=== PATIENT | female | born 1985 | race Hispanic/Latino ===

== ENCOUNTER 2018-03-29 19:20 | Inpatient (IN) | payer BC ==
[2018-03-29] MEDS ORDERED: ONDANSETRON 4 MG/2 ML VIAL IV PRN (20:32)
[2018-03-29] MEDS: CIPROFLOXACIN 400mg IV 400 MG/200 ML BAG IV SCH (21:00)
[2018-03-29] MEDS: NA CHLORIDE 0.9% 1,000 ML IV SCH (21:00)
--- NOTE | 2018-03-29 21:28 | P.HP ---
Certification for Inpatient Patient admitted to: Inpatient With expected LOS: >2 Midnights Practitioner: I am a practitioner with admitting privileges, knowledge of patient current condition, hospital course, and medical plan of care. Services: Services provided to patient in accordance with Admission requirements found in Title 42 Section 412.3 of the Code of Federal Regulations Patient History Date of Service: 03/29/18 Reason for admission: Colitis History of Present Illness: Ms Lima is a 32-year-old woman who start with abdominal pain associated with diarrhea last night after dinner. She described the pain as crampy, diffuse, 10 /10 of intensity, associated with nausea vomiting. She denied fever but has had chills. She went to [place] [facility] today, she had a CT scan abdomen and pelvis which was remarkable for colitis. Lab work the shows leukocytosis 11.3 K, UA unremarkable. The patient then was transferred to our facility for admission, in order to start IV antibiotic treatment, and have a GI specialist evaluation. Allergies No Known Allergies Allergy (Verified 03/29/18 21:20) Home medications list reviewed: Yes - Past Medical/Surgical History -: Ovarian cyst - Family History Father -: GI disease, Other (see notes) (Ulcerative colitis) - Social History Smoking Status: Never smoker Alcohol use: No CD- Drugs: No Place of Residence: Home Review of Systems 10-point ROS is otherwise unremarkable Physical Examination - Vital Signs Temperature: 97.9 F Blood Pressure: 131/79 Pulse: 66 Respirations: 20 Pulse Ox (%): 100 - Physical Exam General: Alert, In no apparent distress HEENT: Atraumatic, PERRLA, Mucous membr. moist/pink, EOMI, Sclerae nonicteric Neck: Supple, 2+ carotid pulse no bruit, No LAD, Without JVD or thyroid abnormality Respiratory: Clear to auscultation bilaterally, Normal air movement Cardiovascular: Regular rate/rhythm, Normal S1 S2 Gastrointestinal: Normal bowel sounds, No rebound, No guarding, Tenderness ( Tender to palpation diffuse) Musculoskeletal: No tenderness Integumentary: No rashes Neurological: Normal speech, Normal strength at 5/5 x4 extr, Normal tone, Normal affect Lymphatics: No axilla or inguinal lymphadenopathy Assessment and Plan - Problems (Diagnosis) (1) Colitis Current Visit: Yes Status: Acute - Plan The patient will be admitted to the hospital due to colitis. Her father has history of ulcerative colitis, which makes it highly suspicion within the differential diagnosis. Will start empiric treatment with Cipro and Flagyl. Will order symptomatic medication for pain, nausea and vomiting. Consult GI specialist for evaluation recommendation. - Advance Directives Does patient have a Living Will: No Does patient have a Durable POA for Healthcare: No - Code Status/Comfort Care Code Status Assessed: Yes Code Status: Full Code
[2018-03-29] MEDS: KETOROLAC 30 MG/ML INJ IV PRN (23:12)
[2018-03-30] MEDS: METRONIDAZOLE 500mg IVPB 500 MG/100 ML BAG IV SCH ×3 (00:32→17:38)
[2018-03-30] MEDS: KETOROLAC 30 MG/ML INJ IV PRN ×3 (05:23→20:57)
[2018-03-30] MEDS: NA CHLORIDE 0.9% 1,000 ML IV SCH ×2 (05:23→17:35)
[2018-03-30 06:11] LABS: Absolute Lymphocytes (CBC) 2.2 K/uL (0.7-4.9); Absolute Monocytes 0.8 K/uL (0.1-1.3); Basophils % 0.5 % (0-1.3); Eosinophils % 2.3 % (0-4.4); Lymphocytes % 30.3 % (15.3-44.8); MCH 19.9 pg (27.0-35.0); MCV 64.2 fL (80-100); MPV 9.5 fL (7.6-11.3); Monocytes % 11.3 % (3.3-12.3)
[2018-03-30 06:23] LABS: BUN Blood Urea Nitrogen 4 mg/dL (7-18); Bicarbonate 24 mmol/L (21-32); Glucose Level 94 mg/dL (74-106); Potassium 3.7 mmol/L (3.5-5.1); Sodium Level 142 mmol/L (136-145)
[2018-03-30 07:36] LABS: Blood Morphology Comment NOT SEEN (NOT SEEN); Hypochromasia 2+; Platelet Estimate ADEQ; Urine White Blood Cell Casts OK
[2018-03-30] MEDS ORDERED: INFLUENZA VACCINE (for 3y+) 0.5 ML DOSE IMVAC ONE (08:00)
[2018-03-30] MEDS ORDERED: KCL 20 MEQ/100 mL IVPB 20 MEQ/100 ML BAG IV SCH ×2 (09:00)
[2018-03-30] MEDS: CIPROFLOXACIN 400mg IV 400 MG/200 ML BAG IV SCH ×2 (09:17→20:04)
--- NOTE | 2018-03-30 10:15 | P.PN ---
Subjective Date of Service: 03/30/18 Primary Care Provider: None Chief Complaint: Colitis Subjective: Other (Pain to the abdomen improved. Patient reports history of rectal bleeding often on for several months. She has not followed up with GI to address this. Patient reports family history of colon polyps. No history of ulcerative colitis as stated on H&P.) Physical Examination - Vital Signs Temperature: 97.9 F Blood Pressure: 118/74 Pulse: 70 Respirations: 18 Pulse Ox (%): 99 - Physical Exam General: Alert, In no apparent distress, Oriented x3, Cooperative HEENT: Atraumatic Neck: Supple Respiratory: Clear to auscultation bilaterally, Normal air movement Cardiovascular: Normal pulses, Regular rate/rhythm Gastrointestinal: Normal bowel sounds, Soft and benign, Non-distended, No masses , No rebound, No guarding, Tenderness (Less pain to the abdomen noted.) Musculoskeletal: No erythema, No tenderness, No warmth Integumentary: No tenderness/swelling, No erythema, No warmth, No cyanosis Neurological: Normal speech, Normal strength at 5/5 x4 extr, Normal tone, Normal affect - Studies Laboratory Data (last 24 hrs) 03/30/18 05:44: Sodium 142, Potassium 3.7, BUN 4 L, Creatinine 0.60, Glucose 94 03/30/18 05:44: WBC 7.2, Hgb 7.8 L*, Hct 25.0 L, Plt Count 336 Medications List Reviewed: Yes Assessment & Plan Discharge Plan: Home Plan to discharge in: 48 Hours Physician Review Additional Text: Impression: Abdominal pain secondary to colitis History of rectal bleeding with family history of colon polyps Anemia likely secondary to colitis with history of rectal bleeding Plan: Abdominal pain secondary to colitis: Will continue IV antibiotic therapy and IV fluids. Will monitor this closely. Pain significantly improved. Will start clear liquid diet. Encourage ambulation. Will advance diet as tolerated. Anticipate discharge in the next 24-48 hr. GI consulted. Patient will need colonoscopy in 4-6 weeks to further evaluate. History of rectal bleeding with family history of colon polyps: Patient with anemia. Will monitor hemoglobin closely. Patient reports history of rectal bleeding that is not seen GI in the past. She reports family history of colon polyps with her mother. Patient will need colonoscopy in 4-6 weeks. Await recommendation from GI. Anemia likely secondary to colitis with history of rectal bleeding: Will monitor hemoglobin closely. Will check iron and B12 studies. Suspect iron deficiency anemia. Patient may require supplementation. Continue as above. Time Spent Managing Pts Care (In Minutes): 55
[2018-03-30 12:36] LABS: Hematocrit 23.9 % (36.0-45.0)
[2018-03-30 12:53] LABS: Ferritin 4.1 ng/mL (8-388)
[2018-03-30 18:15] LABS: Hematocrit 24.2 % (36.0-45.0)
[2018-03-31] MEDS: METRONIDAZOLE 500mg IVPB 500 MG/100 ML BAG IV SCH ×3 (00:39→18:21)
[2018-03-31] MEDS: NA CHLORIDE 0.9% 1,000 ML IV SCH (03:09)
[2018-03-31 06:51] LABS: BUN Blood Urea Nitrogen 4 mg/dL (7-18); Bicarbonate 25 mmol/L (21-32); Glucose Level 94 mg/dL (74-106); Potassium 4.5 mmol/L (3.5-5.1); Sodium Level 141 mmol/L (136-145)
[2018-03-31 09:02] LABS: Absolute Lymphocytes (CBC) 1.6 K/uL (0.7-4.9); Absolute Monocytes 0.6 K/uL (0.1-1.3); Absolute Neutrophil 3.5 K/uL (1.8-8.0); Basophils % 0.3 % (0-1.3); Eosinophils % 2.6 % (0-4.4); Hematocrit 26.4 % (36.0-45.0); Lymphocytes % 27.4 % (15.3-44.8); MCH 19.7 pg (27.0-35.0); MCV 64.3 fL (80-100); MPV 9.7 fL (7.6-11.3); Monocytes % 9.8 % (3.3-12.3)
[2018-03-31] MEDS: CIPROFLOXACIN 400mg IV 400 MG/200 ML BAG IV SCH ×2 (09:54→20:15)
[2018-03-31] MEDS: FERROUS SULFATE 325 MG TAB PO SCH ×2 (09:58→20:15)
--- NOTE | 2018-03-31 10:16 | P.PN ---
Subjective Date of Service: 03/31/18 Primary Care Provider: None Chief Complaint: Colitis Subjective: Doing well (No abdominal pain.) Physical Examination - Vital Signs Temperature: 98.2 F Blood Pressure: 118/86 Pulse: 67 Respirations: 18 Pulse Ox (%): 99 - Physical Exam General: Alert, In no apparent distress, Oriented x3, Cooperative HEENT: Atraumatic Neck: Supple Respiratory: Clear to auscultation bilaterally, Normal air movement Cardiovascular: Normal pulses, Regular rate/rhythm Gastrointestinal: Normal bowel sounds, Soft and benign, Non-distended, No tenderness, No masses, No rebound, No guarding Musculoskeletal: No erythema, No tenderness, No warmth Integumentary: No tenderness/swelling, No erythema, No warmth, No cyanosis Neurological: Normal speech, Normal strength at 5/5 x4 extr, Normal tone, Normal affect - Studies Laboratory Data (last 24 hrs) 03/31/18 07:53: WBC 5.8 D, Hgb 8.1 L, Hct 26.4 L, Plt Count 354 03/31/18 05:29: Sodium 141, Potassium 4.5, BUN 4 L, Creatinine 0.60, Glucose 94 03/30/18 17:58: Hgb 7.5 L*, Hct 24.2 L 03/30/18 12:00: Hgb 7.4 L*, Hct 23.9 L Microbiology Data (last 24 hrs): 03/30/18 18:40 Stool Occult Blood - Final Medications List Reviewed: Yes Assessment & Plan Discharge Plan: Home Plan to discharge in: 24 Hours Physician Review Additional Text: Impression: Abdominal pain secondary to colitis History of rectal bleeding with family history of colon polyps Anemia likely secondary to colitis with history of rectal bleeding Plan: Abdominal pain secondary to colitis: Will continue IV antibiotic therapy and IV fluids. IV fluids adjusted. Condition continues to improve. Will advance diet to soft. Encourage ambulation. Anticipate discharge tomorrow. Await C diff culture results. Guaiac study was positive. Hemoglobin stable. Patient will need colonoscopy in 4-6 weeks to further evaluate. History of rectal bleeding with family history of colon polyps: Patient with anemia. Hemoglobin stable at this time. No need for transfusion. She reports family history of colon polyps with her mother. Patient will need colonoscopy in 4-6 weeks. Anemia likely secondary to colitis with history of rectal bleeding: Will continue to monitor hemoglobin closely. Hemoglobin stable. No need for transfusion. Will continue with iron supplementation. Time Spent Managing Pts Care (In Minutes): 55
[2018-03-31] MEDS: NACHLORIDE 0.45% 1,000 ML IV SCH ×2 (11:00→20:15)
--- NOTE | 2018-03-31 14:07 | P.PN ---
Subjective Date of Service: 03/31/18 Primary Care Provider: None Chief Complaint: Colitis Subjective: Improving (No complaints today, tolerating GI soft diet.) Review of Systems Unremarkable Physical Examination - Vital Signs Temperature: 97.9 F Blood Pressure: 134/80 Pulse: 71 Respirations: 20 Pulse Ox (%): 100 - Physical Exam General: Alert, In no apparent distress, Oriented x3, Cooperative HEENT: Atraumatic, Normocephalic, PERRLA, EOMI Neck: Supple Respiratory: Normal air movement Cardiovascular: Normal pulses Gastrointestinal: Soft and benign, No tenderness, No rebound, No guarding Neurological: Normal speech, Normal strength at 5/5 x4 extr - Studies Laboratory Data (last 24 hrs) 03/31/18 07:53: WBC 5.8 D, Hgb 8.1 L, Hct 26.4 L, Plt Count 354 03/31/18 05:29: Sodium 141, Potassium 4.5, BUN 4 L, Creatinine 0.60, Glucose 94 03/30/18 17:58: Hgb 7.5 L*, Hct 24.2 L Microbiology Data (last 24 hrs): 03/30/18 18:40 Stool Clostridium difficile Toxin Assay - Final 03/30/18 18:40 Stool Occult Blood - Final Medications List Reviewed: Yes Assessment And Plan - Current Problems (Diagnosis) (1) Colitis Current Visit: Yes Status: Acute - Plan REC: 1) continue antibiotics 2) continue GI soft diet 3) GI clinic follow-up with colonoscopy for 1 year of unevaluated hematochezia seperate from her acute colitis after eating bad food. Physician Review Additional Text: Impression: Abdominal pain secondary to colitis History of rectal bleeding with family history of colon polyps Anemia likely secondary to colitis with history of rectal bleeding Plan: Abdominal pain secondary to colitis: Will continue IV antibiotic therapy and IV fluids. IV fluids adjusted. Condition continues to improve. Will advance diet to soft. Encourage ambulation. Anticipate discharge tomorrow. Await C diff culture results. Guaiac study was positive. Hemoglobin stable. Patient will need colonoscopy in 4-6 weeks to further evaluate. History of rectal bleeding with family history of colon polyps: Patient with anemia. Hemoglobin stable at this time. No need for transfusion. She reports family history of colon polyps with her mother. Patient will need colonoscopy in 4-6 weeks. Anemia likely secondary to colitis with history of rectal bleeding: Will continue to monitor hemoglobin closely. Hemoglobin stable. No need for transfusion. Will continue with iron supplementation.
[2018-04-01] MEDS: METRONIDAZOLE 500mg IVPB 500 MG/100 ML BAG IV SCH ×2 (00:17→08:12)
[2018-04-01] MEDS: NACHLORIDE 0.45% 1,000 ML IV SCH (05:36)
[2018-04-01 06:45] LABS: Absolute Monocytes 0.6 K/uL (0.1-1.3); Absolute Neutrophil 3.1 K/uL (1.8-8.0); Basophils % 0.5 % (0-1.3); Hematocrit 25.5 % (36.0-45.0); MPV 9.9 fL (7.6-11.3); Monocytes % 10.2 % (3.3-12.3); RBC Red Blood Cell Count 3.99 M/uL (3.86-4.86)
[2018-04-01 06:55] LABS: BUN Blood Urea Nitrogen 7 mg/dL (7-18); Bicarbonate 23 mmol/L (21-32); Glucose Level 98 mg/dL (74-106); Magnesium 2.1 mg/dL (1.8-2.4); Potassium 4.2 mmol/L (3.5-5.1); Sodium Level 142 mmol/L (136-145)
--- NOTE | 2018-04-01 08:11 | P.DS ---
Admission Date: 03/29/18 Discharge Date: 04/01/18 Primary Care Provider: None Disposition: ROUTINE DISCHARGE Discharge Condition: GOOD Reason for Admission: Colitis Consultations: GI-Dr. Singletary Procedures: Medical problem list: Abdominal pain secondary to colitis History of rectal bleeding with family history of colon polyps Anemia likely secondary to colitis with history of rectal bleeding Adult Attention deficit disorder GERD Brief History of Present Illness: 32-year-old female presented to an outpatient ER facility for abdominal pain, diarrhea, nausea and vomiting. CT scan revealed colitis. Patient was transferred as a direct admission to continue care. Hospital Course: Patient presented with abdominal pain, nausea, vomiting, and diarrhea at an outpatient ER facility. Patient found to have colitis on CT scan. The patient was direct admitted for continued treatment. Patient received IV fluids and antibiotic therapy. GI was consulted. No intervention was required. Patient had guaiac-positive study. Her condition improved. At discharge she is without any significant abdominal pain, nausea, vomiting or diarrhea. C diff culture negative. At discharge she will continue with Cipro 500 mg 1 pill twice daily and Flagyl 500 mg 1 pill 3 times a day for 7 days. Recommendation for the patient follow up with GI in 1-2 weeks to follow up this hospitalization. Patient will require colonoscopy in 4-6 weeks to further evaluate. Patient reports history of rectal bleeding over several months. There is a family history of colon polyps. Patient was found to be iron deficient. The patient was started on iron supplementation. Hemoglobin remained stable. No transfusion was required. At discharge she will continue with iron 325 mg 1 pill twice daily. Patient will need follow up with GI and colonoscopy in 4-6 weeks to further evaluate. Recommendation to recheck CBC and iron level in 2-4 weeks to monitor her progress. Patient has history of attention deficit disorder. Patient may continue with her medication-Vyvanse. Patient likely has GERD. Patient may continue with Pepcid 20 mg 1 pill twice daily. Patient will follow up with GI to further evaluate. Vital Signs/Physical Exam: Temp Pulse Resp BP Pulse Ox 98.3 F 73 18 117/74 99 04/01/18 04:00 04/01/18 04:00 04/01/18 04:00 04/01/18 04:00 04/01/18 04:00 General: Alert, In no apparent distress, Oriented x3, Cooperative HEENT: Atraumatic, Mucous membr. moist/pink Neck: Supple, No Thyromegaly Respiratory: Clear to auscultation bilaterally, Normal air movement Cardiovascular: Normal pulses, Regular rate/rhythm Gastrointestinal: Normal bowel sounds, Soft and benign, Non-distended, No tenderness, No masses, No rebound, No guarding Musculoskeletal: No erythema, No tenderness, No warmth Integumentary: No tenderness/swelling, No erythema, No warmth, No cyanosis Neurological: Normal speech, Normal strength at 5/5 x4 extr, Normal tone, Normal affect Laboratory Data at Discharge: WBC 6.0 K/uL (4.3-10.9) 04/01/18 05:35 Hgb 8.0 g/dL (12.0-15.0) L 04/01/18 05:35 Hct 25.5 % (36.0-45.0) L 04/01/18 05:35 Plt Count 343 K/uL (152-406) 04/01/18 05:35 Sodium 142 mmol/L (136-145) 04/01/18 05:55 Potassium 4.2 mmol/L (3.5-5.1) 04/01/18 05:55 BUN 7 mg/dL (7-18) 04/01/18 05:55 Creatinine 0.60 mg/dL (0.55-1.3) 04/01/18 05:55 Glucose 98 mg/dL (74-106) 04/01/18 05:55 Magnesium 2.1 mg/dL (1.8-2.4) 04/01/18 05:55 Home Medications: Lisdexamfetamine Dimesylate [Vyvanse] 1 cap PO DAILY 03/29/18 Ciprofloxacin HCl [Cipro 500 MG Tablet] 500 mg PO BID #14 tab 04/01/18 Famotidine [Pepcid] 20 mg PO BID #60 tab 04/01/18 Ferrous Sulfate [Ferrous Sulfate*] 325 mg PO BID #60 tab 04/01/18 metroNIDAZOLE [Flagyl] 500 mg PO Q8H #21 tablet 04/01/18 New Medications: Ciprofloxacin HCl [Cipro 500 MG Tablet] 500 mg PO BID #14 tab Famotidine [Pepcid] 20 mg PO BID #60 tab Ferrous Sulfate [Ferrous Sulfate*] 325 mg PO BID #60 tab metroNIDAZOLE [Flagyl] 500 mg PO Q8H #21 tablet Patient Discharge Instructions: 1. Patient will need to establish care with a PCP to follow up this hospitalization. 2. Patient presented with abdominal pain, nausea, vomiting, and diarrhea at an outpatient ER facility. Patient found to have colitis on CT scan. The patient was direct admitted for continued treatment. Patient received IV fluids and antibiotic therapy. GI was consulted. No intervention was required. Patient had guaiac-positive study. Her condition improved. At discharge she is without any significant abdominal pain, nausea, vomiting or diarrhea. C diff culture negative. At discharge she will continue with Cipro 500 mg 1 pill twice daily and Flagyl 500 mg 1 pill 3 times a day for 7 days. Recommendation for the patient follow up with GI in 1-2 weeks to follow up this hospitalization. Patient will require colonoscopy in 4-6 weeks to further evaluate. 3. Patient reports history of rectal bleeding over several months. There is a family history of colon polyps. Patient was found to be iron deficient. The patient was started on iron supplementation. Hemoglobin remained stable. No transfusion was required. At discharge she will continue with iron 325 mg 1 pill twice daily. Patient will need follow up with GI and colonoscopy in 4-6 weeks to further evaluate. Recommendation to recheck CBC and iron level in 2-4 weeks to monitor her progress. 4. Patient has history of attention deficit disorder. Patient may continue with her medication-Vyvanse. 5. Patient likely has GERD. Patient may continue with Pepcid 20 mg 1 pill twice daily. Patient will follow up with GI to further evaluate. Diet: AHA Activity: Ad paula Time spent managing pt's care (in minutes): 55
[2018-04-01] MEDS: CIPROFLOXACIN 400mg IV 400 MG/200 ML BAG IV SCH (08:13)
[2018-04-01] MEDS: FERROUS SULFATE 325 MG TAB PO SCH (08:13)
[2018-04-01 08:48] LABS: Platelet Estimate INCR; Urine White Blood Cell Casts OK
[2018-04-01 08:49] LABS: Anisocytosis 1+; Blood Morphology Comment NOTED (NOT SEEN); Hypochromasia 2+
--- NOTE | 2018-04-01 11:13 | P.PN ---
Subjective Date of Service: 04/01/18 Primary Care Provider: None Chief Complaint: Colitis Subjective: Improving (Feels better today and wants to go home. and family at bedside. Hgb at 8.1 up from 7. She reports history of heavy menses and is to see RESIDENT IN DIAGNOSTIC RADIOLOGY on discharge. MONICA by labs and heme positive stool here with some blood loss from probable infectious colitis that has largely resolved.) Review of Systems Unremarkable Physical Examination - Vital Signs Temperature: 98.5 F Blood Pressure: 134/74 Pulse: 70 Respirations: 18 Pulse Ox (%): 92 - Physical Exam General: Alert, In no apparent distress, Oriented x3, Cooperative HEENT: Atraumatic, Normocephalic, PERRLA, EOMI Neck: Supple Respiratory: Normal air movement Cardiovascular: Normal pulses Gastrointestinal: Soft and benign, No tenderness, No rebound, No guarding Neurological: Normal speech, Normal strength at 5/5 x4 extr - Studies Laboratory Data (last 24 hrs) 04/01/18 05:55: Sodium 142, Potassium 4.2, BUN 7, Creatinine 0.60, Glucose 98, Magnesium 2.1 04/01/18 05:35: WBC 6.0, Hgb 8.0 L, Hct 25.5 L, Plt Count 343 Microbiology Data (last 24 hrs): 03/30/18 18:40 Stool Culture & Sensitivity - Final 03/30/18 18:40 Stool Clostridium difficile Toxin Assay - Final Medications List Reviewed: Yes Assessment And Plan - Current Problems (Diagnosis) (1) Colitis Current Visit: Yes Status: Acute (2) RLQ abdominal pain Current Visit: Yes Status: Acute (3) LLQ abdominal pain Current Visit: Yes Status: Acute (4) Change in bowel habits Current Visit: Yes Status: Acute (5) Diarrhea Current Visit: Yes Status: Acute (6) Heme positive stool Current Visit: Yes Status: Acute (7) Hematochezia Current Visit: Yes Status: Acute (8) Menorrhagia Current Visit: Yes Status: Acute (9) Iron deficiency anemia Current Visit: Yes Status: Acute (10) Family history of colonic polyps Current Visit: Yes Status: Acute Comment: mother - Plan REC: 1) continue antibiotics 2) continue GI soft diet 3) GI clinic follow-up with colonoscopy in 4-6 weeks (for 1 year of unevaluated hematochezia seperate from her acute colitis after eating bad food) 4) MVIs with Vitamin C 5) check H&H or CBC in 1-2 weeks and at 3 months 6) RESIDENT IN DIAGNOSTIC RADIOLOGY f/u after discharge due to heavy menses and MONICA Physician Review Additional Text: Impression: Abdominal pain secondary to colitis History of rectal bleeding with family history of colon polyps Anemia likely secondary to colitis with history of rectal bleeding Plan: Abdominal pain secondary to colitis: Will continue IV antibiotic therapy and IV fluids. IV fluids adjusted. Condition continues to improve. Will advance diet to soft. Encourage ambulation. Anticipate discharge tomorrow. Await C diff culture results. Guaiac study was positive. Hemoglobin stable. Patient will need colonoscopy in 4-6 weeks to further evaluate. History of rectal bleeding with family history of colon polyps: Patient with anemia. Hemoglobin stable at this time. No need for transfusion. She reports family history of colon polyps with her mother. Patient will need colonoscopy in 4-6 weeks. Anemia likely secondary to colitis with history of rectal bleeding: Will continue to monitor hemoglobin closely. Hemoglobin stable. No need for transfusion. Will continue with iron supplementation.
== END 2018-04-01 11:25 | disposition home or self-care (01) | DRG 392 ==
LOC: 4TH 19:20
PROVIDERS: ADMIT Internal Medicine; ATTEND Family Medicine
DX: K52.9 Noninfective gastroenteritis and colitis, unspecified (principal); Z83.71 Family history of colonic polyps; F98.8 Other specified behavioral and emotional disorders with onset usually occurring in childhood and adolescence; D64.9 Anemia, unspecified; E61.1 Iron deficiency
CPT/HCPCS: 36415; 80048; 82274; 82607; 82728; 83540; 83735; 84466; 85014; 85018; 85025; 87045; 87046; 87493; G0008; J0744; J7030; Q2035

== ENCOUNTER 2018-09-19 04:50 | Emergency (ER) | payer BC ==
[2018-09-19] MEDS ORDERED: NA CHLORIDE 0.9% 1,000 ML ONE ×3 (05:28→07:08)
[2018-09-19] MEDS ORDERED: MORPHINE 4 MG/ML SYR ONE (05:28)
[2018-09-19] MEDS ORDERED: ONDANSETRON 4 MG/2 ML VIAL ONE ×2 (05:30→09:35)
[2018-09-19] MEDS ORDERED: METRONIDAZOLE 500mg IVPB 500 MG/100 ML BAG IV ONE (05:47)
[2018-09-19] MEDS ORDERED: CIPROFLOXACIN 400mg IV 400 MG/200 ML BAG IV ONE (05:47)
[2018-09-19 05:50] LABS: Absolute Lymphocytes (CBC) 1.4 K/uL (0.7-4.9); Absolute Monocytes 0.6 K/uL (0.1-1.3); Absolute Neutrophil 6.8 K/uL (1.8-8.0); Basophils % 0.2 % (0-1.3); Eosinophils % 3.1 % (0-4.4); Hematocrit 30.2 % (36.0-45.0); Lymphocytes % 15.5 % (15.3-44.8); MPV 9.3 fL (7.6-11.3); Monocytes % 6.1 % (3.3-12.3)
[2018-09-19 05:54] LABS: ALT/SGPT 43 U/L (12-78); AST/SGOT 29 U/L (15-37); Albumin 3.7 g/dL (3.4-5.0); Alkaline Phosphatase 82 U/L (45-117); BUN Blood Urea Nitrogen 11 mg/dL (7-18); Bicarbonate 22 mmol/L (21-32); Bilirubin Direct < 0.1 mg/dL (0-0.2); Bilirubin Total 0.4 mg/dL (0.2-1.0); Glucose Level 111 mg/dL (74-106); Lipase 196 U/L (73-393); Potassium 3.8 mmol/L (3.5-5.1); Protein, Total 8.3 g/dL (6.4-8.2); Sodium Level 138 mmol/L (136-145)
[2018-09-19] MEDS ORDERED: FAMOTIDINE 20 MG/2 ML VIAL IV ONE (06:32)
[2018-09-19 06:35] LABS: Anisocytosis SLIGHT; Blood Morphology Comment NOTED (NOT SEEN); Platelet Estimate ADEQ
[2018-09-19 06:36] LABS: Hypochromasia 1+
--- NOTE | 2018-09-19 10:21 | ER ---
Nurse's Notes [facility] Name: Zee Lima Age: 33 yrs Sex: Female : 1985 Arrival Date: 09/19/2018 Time: 04:55 Bed 8 Private MD: Burt Delaney Diagnosis: Abdominal tenderness;Vomiting;Diarrhea, unspecified;Anemia, unspecified Presentation: 09/19 05:22 Presenting complaint: Patient states: "I had colitis a while ago and this pain feels tl2 exactly like it". Reports mid abdominal pain and NVD. Transition of care: patient was not received from another setting of care. Onset of symptoms was September 16, 2018. Risk Assessment: Do you want to hurt yourself or someone else? Patient reports no desire to harm self or others. Initial Sepsis Screen: Does the patient meet any 2 criteria? No. Patient's initial sepsis screen is negative. Does the patient have a suspected source of infection? No. Patient's initial sepsis screen is negative. Care prior to arrival: None. 05:22 Method Of Arrival: Ambulatory tl2 05:22 Acuity: PAUL 3 tl2 Triage Assessment: 05:25 General: Appears in no apparent distress. uncomfortable, Behavior is calm, cooperative, tl2 appropriate for age. Pain: Complains of pain in umbilical area, right lower quadrant and left lower quadrant Pain currently is 10 out of 10 on a pain scale. Quality of pain is described as sharp, Is continuous. Neuro: Level of Consciousness is awake, alert, obeys commands. Cardiovascular: Denies chest pain. GI: Abdomen is non-distended, Abd is soft Abdomen is tender to palpation X 4 quads. Reports diarrhea, nausea, vomiting. : No signs and/or symptoms were reported regarding the genitourinary system. Derm: Skin is pink, warm \\T\\ dry. 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 - Social history:: Smoking status: Patient/guardian denies using tobacco. - Ebola Screening: : No symptoms or risks identified at this time. - Family history:: not pertinent. Screenin:30 Abuse screen: Denies threats or abuse. Denies injuries from another. Nutritional aa1 screening: No deficits noted. Tuberculosis screening: No symptoms or risk factors identified. Fall Risk None identified. Assessment: 05:30 General: Appears in no apparent distress. comfortable, Behavior is calm, cooperative, aa1 appropriate for age. Pain: Complains of pain in abdomen Quality of pain is described as sharp, Is continuous. Neuro: Level of Consciousness is awake, alert, obeys commands, Oriented to person, place, time, situation, Moves all extremities. Full function Gait is steady. Cardiovascular: Heart tones S1 S2 present. Respiratory: Airway is patent Respiratory effort is even, unlabored, Respiratory pattern is regular, symmetrical. GI: Abdomen is non-distended, Bowel sounds present X 4 quads. Abd is soft X 4 quads Reports lower abdominal pain, diarrhea, nausea, vomiting. : No signs and/or symptoms were reported regarding the genitourinary system. EENT: No signs and/or symptoms were reported regarding the EENT system. Derm: Skin is intact, is healthy with good turgor, Skin is pink, warm \\T\\ dry. Musculoskeletal: Circulation, motion, and sensation intact. Capillary refill < 3 seconds. 06:37 Reassessment: Patient appears in no apparent distress at this time. Patient and/or aa1 family updated on plan of care and expected duration. Pain level reassessed. Patient is alert, oriented x 3, equal unlabored respirations, skin warm/dry/pink. Awaiting CT scan. 07:00 Reassessment: RECD REPORT FROM VALERIE TROTTER. 33YO HF P/W RLQ PAIN, R/O COLITIS. IVF bp INFUSING, RESULTS PENDING FOR DISPO. 08:30 Reassessment: PT CONTINUES TO C/O NAUSEA, MED ORDERED AND GIVEN. bp 10:01 Reassessment: ALL CURRENT ORDERS COMPLETED, RESULTS AND DISPO PENDING. bp 10:27 Reassessment: PT D/C HOME AMBULATORY WITH FAMILY, DX WITH UNSPECIFIC NAUSEA, VOMITING bp AND DIARRHEA. Vital Signs: 05:25 BP 123 / 85; Pulse 65; Resp 18; Temp 98.6(O); Pulse Ox 100% on R/A; Weight 72.57 kg; tl2 Height 5 ft. 2 in. (157.48 cm); Pain 10/10; 06:37 BP 137 / 88; Pulse 72; Resp 16; Pulse Ox 100% on R/A; Pain 8/10; aa1 07:34 BP 126 / 81; Pulse 77; Resp 14; Pulse Ox 99% ; bp 08:45 BP 139 / 89; Pulse 67; Resp 14; Pulse Ox 100% ; bp 10:00 BP 109 / 66; Pulse 74; Resp 16; Pulse Ox 97% ; bp 10:33 BP 139 / 83; Pulse 100; Resp 14; Pulse Ox 97% ; bp 05:25 Body Mass Index 29.26 (72.57 kg, 157.48 cm) tl2 ED Course: 04:55 Patient arrived in ED. am2 04:55 Burt Delaney MD is Private Physician. am2 05:00 Yonathan Pat MD is Attending Physician. tristan 05:15 Inserted saline lock: 22 gauge in right antecubital area, using aseptic technique. tl2 Blood collected. 05:24 Triage completed. tl2 05:25 Arm band placed on right wrist. tl2 05:30 Patient has correct armband on for positive identification. Placed in gown. Bed in low aa1 position. Call light in reach. Pulse ox on. NIBP on. Warm blanket given. 06:56 CT completed. Patient tolerated procedure well. Patient moved to CT via wheelchair. eh Patient moved back from CT. 07:01 CT Abd/Pelvis - W/Contrast In Process Unspecified. EDMS 07:01 Yonathan Betancur PA is PHCP. cp 07:24 Fer Samaniego, SERGO is Primary Nurse. bp 10:20 Burt Delaney MD is Referral Physician. cp 10:20 Royce Gillespie MD is Referral Physician. cp 10:28 No provider procedures requiring assistance completed. IV discontinued, intact, bp bleeding controlled, No redness/swelling at site. Pressure dressing applied. Administered Medications: 05:15 Drug: NS 0.9% 1000 ml Route: IV; Rate: 1 bolus; Site: right antecubital; tl2 10:40 Follow up: IV Status: Completed infusion; IV Intake: 1000ml bp 05:15 Drug: morphine 4 mg Route: IVP; Site: right antecubital; tl2 10:13 Follow up: Response: Pain is decreased bp 05:15 Drug: Zofran 4 mg Route: IVP; Site: right antecubital; tl2 10:13 Follow up: Response: Nausea is decreased bp 05:50 Drug: Flagyl 500 mg Volume: 100 ml; Route: IVPB; Rate: 200 ml/hr; Infused Over: 30 tl2 mins; Site: right antecubital; 06:31 Follow up: IV Status: Completed infusion aa1 06:31 Drug: Cipro 400 mg Volume: 200 ml; Route: IVPB; Infused Over: 60 mins; Site: right aa1 antecubital; 10:35 Follow up: Response: Nausea is decreased bp 10:39 Follow up: IV Status: Completed infusion; IV Intake: 200ml bp 06:31 Drug: Pepcid 20 mg Route: IVP; Site: right antecubital; aa1 07:33 Follow up: Response: No adverse reaction bp 07:00 Drug: NS 0.9% 1000 ml Route: IV; Rate: 125 ml/hr; Site: right antecubital; bp 10:36 Follow up: IV Status: Completed infusion bp 07:00 Drug: NS 0.9% 1000 ml Route: IV; Rate: 1 bolus; Site: right antecubital; bp 10:33 Follow up: BP 139 / 83; Pulse 100 bpm; Resp 14 bpm; Pulse Ox 97% bp 10:36 Follow up: IV Status: Completed infusion; IV Intake: 1000ml bp 09:00 Drug: Zofran 4 mg Route: IVP; Site: right antecubital; bp 10:13 Follow up: Response: Nausea is decreased bp Intake: 10:36 IV: 1000ml; Total: 1000ml. bp 10:39 IV: 200ml; Total: 1200ml. bp 10:40 IV: 1000ml; Total: 2200ml. bp Outcome: 10:20 Discharge ordered by MD. cp 10:30 Discharged to home ambulatory, with family. bp 10:30 Condition: stable 10:30 Discharge instructions given to patient, Instructed on discharge instructions, follow up and referral plans. medication usage, Demonstrated understanding of instructions, follow-up care, medications, Prescriptions given X 4. 10:40 Patient left the ED. bp Signatures: Dispatcher [employer] EDMS Valerie Anthony RN RN aa1 BiYonathan MD MD cha Hagler, Ervin eh Page, Corey, PA PA cp Knox, Taylor, RN RN tl2 Meghan Branch am2 Fer Samaniego, RN RN bp
--- NOTE | 2018-09-19 10:22 | EDPHYS ---
Physician Documentation [facility] Name: Zee Lima Age: 33 yrs Sex: Female : 1985 Arrival Date: 09/19/2018 Time: 04:55 Bed 8 Private MD: Burt Delaney ED Physician Yonathan Pat HPI: 09/19 05:42 This 33 yrs old Female presents to ER via Ambulatory with complaints of tristan Abdominal Pain, Vomiting/Diarrhea. 05:42 The patient presents to the emergency department with nausea, vomiting, diarrhea, tristan abdominal pain. Onset: The symptoms/episode began/occurred 2 day(s) ago. Possible causes: unknown. The symptoms are aggravated by nothing. The symptoms are alleviated by nothing. Associated signs and symptoms: Pertinent positives: abdominal pain, diarrhea, nausea. Severity of symptoms: in the emergency department the symptoms are unchanged. The patient has not experienced similar symptoms in the past. 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 - Social history:: Smoking status: Patient/guardian denies using tobacco. - Ebola Screening: : No symptoms or risks identified at this time. - Family history:: not pertinent. ROS: 05:42 Constitutional: Negative for fever, chills, and weight loss, Eyes: Negative for injury, tristan pain, redness, and discharge, ENT: Negative for injury, pain, and discharge, Neck: Negative for injury, pain, and swelling, Cardiovascular: Negative for chest pain, palpitations, and edema, Respiratory: Negative for shortness of breath, cough, wheezing, and pleuritic chest pain, Back: Negative for injury and pain, : Negative for injury, bleeding, discharge, and swelling, MS/Extremity: Negative for injury and deformity, Skin: Negative for injury, rash, and discoloration, Neuro: Negative for headache, weakness, numbness, tingling, and seizure, Psych: Negative for depression, anxiety, suicide ideation, homicidal ideation, and hallucinations, Allergy/Immunology: Negative for hives, rash, and allergies, Endocrine: Negative for neck swelling, polydipsia, polyuria, polyphagia, and marked weight changes, Hematologic/Lymphatic: Negative for swollen nodes, abnormal bleeding, and unusual bruising. 05:42 Abdomen/GI: Positive for abdominal pain, nausea and vomiting, diarrhea. Exam: 05:42 Constitutional: This is a well developed, well nourished patient who is awake, alert, tristan and in no acute distress. Head/Face: Normocephalic, atraumatic. Eyes: Pupils equal round and reactive to light, extra-ocular motions intact. Lids and lashes normal. Conjunctiva and sclera are non-icteric and not injected. Cornea within normal limits. Periorbital areas with no swelling, redness, or edema. ENT: Nares patent. No nasal discharge, no septal abnormalities noted. Tympanic membranes are normal and external auditory canals are clear. Oropharynx with no redness, swelling, or masses, exudates, or evidence of obstruction, uvula midline. Mucous membranes moist. Neck: Trachea midline, no thyromegaly or masses palpated, and no cervical lymphadenopathy. Supple, full range of motion without nuchal rigidity, or vertebral point tenderness. No Meningismus. Chest/axilla: Normal chest wall appearance and motion. Nontender with no deformity. No lesions are appreciated. Cardiovascular: Regular rate and rhythm with a normal S1 and S2. No gallops, murmurs, or rubs. Normal PMI, no JVD. No pulse deficits. Respiratory: Lungs have equal breath sounds bilaterally, clear to auscultation and percussion. No rales, rhonchi or wheezes noted. No increased work of breathing, no retractions or nasal flaring. Back: No spinal tenderness. No costovertebral tenderness. Full range of motion. Female : Normal external genitalia. Skin: Warm, dry with normal turgor. Normal color with no rashes, no lesions, and no evidence of cellulitis. MS/ Extremity: Pulses equal, no cyanosis. Neurovascular intact. Full, normal range of motion. Neuro: Awake and alert, GCS 15, oriented to person, place, time, and situation. Cranial nerves II-XII grossly intact. Motor strength 5/5 in all extremities. Sensory grossly intact. Cerebellar exam normal. Normal gait. Psych: Awake, alert, with orientation to person, place and time. Behavior, mood, and affect are within normal limits. 05:42 Abdomen/GI: Inspection: abdomen appears normal, Bowel sounds: normal, Palpation: mild abdominal tenderness, in the right upper quadrant, left upper quadrant, right lower quadrant and left lower quadrant, Liver: no appreciated palpable abnormalities, Hernia: not appreciated. Vital Signs: 05:25 BP 123 / 85; Pulse 65; Resp 18; Temp 98.6(O); Pulse Ox 100% on R/A; Weight 72.57 kg; tl2 Height 5 ft. 2 in. (157.48 cm); Pain 10/10; 06:37 BP 137 / 88; Pulse 72; Resp 16; Pulse Ox 100% on R/A; Pain 8/10; aa1 07:34 BP 126 / 81; Pulse 77; Resp 14; Pulse Ox 99% ; bp 08:45 BP 139 / 89; Pulse 67; Resp 14; Pulse Ox 100% ; bp 10:00 BP 109 / 66; Pulse 74; Resp 16; Pulse Ox 97% ; bp 10:33 BP 139 / 83; Pulse 100; Resp 14; Pulse Ox 97% ; bp 05:25 Body Mass Index 29.26 (72.57 kg, 157.48 cm) tl2 MDM: 05:00 Patient medically screened. [facility] 05:47 Data reviewed: vital signs, nurses notes, lab test result(s), radiologic studies, CT tristan scan. 06:00 Differential diagnosis: gastritis, pancreatitis, urinary tract infection, colitis. cp 10:20 Counseling: I had a detailed discussion with the patient and/or guardian regarding: the cp historical points, exam findings, and any diagnostic results supporting the discharge/admit diagnosis, lab results, radiology results, to return to the emergency department if symptoms worsen or persist or if there are any questions or concerns that arise at home. 10:20 Response to treatment: the patient's symptoms have markedly improved after treatment, cp and as a result, I will discharge patient. 09/19 05:01 Order name: Basic Metabolic Panel; Complete Time: 06:14 [facility] 09/19 07:30 Interpretation: Normal except: CL 110; GLUC 111; CA 8.3. cp 09/19 05:01 Order name: CBC with Diff; Complete Time: 06:52 [facility] 09/19 07:30 Interpretation: Normal except: RBC 4.90; HGB 9.4; HCT 30.2; MCV 61.6; MCH 19.2; MCHC cp 31.2; RDW 19.4; COLTEN% 75.1. 09/19 05:01 Order name: Creatinine for Radiology; Complete Time: 06:14 [facility] 09/19 05:01 Order name: Hepatic Function; Complete Time: 06:14 [facility] 09/19 10:20 Interpretation: Normal except: TP 8.3; GLOB 4.6; A/G 0.8. cp 09/19 05:01 Order name: Lipase; Complete Time: 06:14 [facility] 09/19 05:01 Order name: Urine Culture [facility] 09/19 05:15 Order name: CT Abd/Pelvis - W/Contrast 09/19 06:35 Order name: Manual Differential; Complete Time: 06:52 EDMS 09/19 05:01 Order name: IV Saline Lock; Complete Time: 05:29 [facility] 09/19 05:01 Order name: Labs collected and sent; Complete Time: 05:29 [facility] 09/19 05:01 Order name: Urine Dipstick-Ancillary (obtain specimen); Complete Time: 05:29 [facility] 09/19 05:01 Order name: Urine Test (obtain specimen); Complete Time: 05:29 [facility] 09/19 10:08 Order name: PO challenge; Complete Time: 10:27 cp Administered Medications: 05:15 Drug: NS 0.9% 1000 ml Route: IV; Rate: 1 bolus; Site: right antecubital; tl2 10:40 Follow up: IV Status: Completed infusion; IV Intake: 1000ml bp 05:15 Drug: morphine 4 mg Route: IVP; Site: right antecubital; tl2 10:13 Follow up: Response: Pain is decreased bp 05:15 Drug: Zofran 4 mg Route: IVP; Site: right antecubital; tl2 10:13 Follow up: Response: Nausea is decreased bp 05:50 Drug: Flagyl 500 mg Volume: 100 ml; Route: IVPB; Rate: 200 ml/hr; Infused Over: 30 tl2 mins; Site: right antecubital; 06:31 Follow up: IV Status: Completed infusion aa1 06:31 Drug: Cipro 400 mg Volume: 200 ml; Route: IVPB; Infused Over: 60 mins; Site: right aa1 antecubital; 10:35 Follow up: Response: Nausea is decreased bp 10:39 Follow up: IV Status: Completed infusion; IV Intake: 200ml bp 06:31 Drug: Pepcid 20 mg Route: IVP; Site: right antecubital; aa1 07:33 Follow up: Response: No adverse reaction bp 07:00 Drug: NS 0.9% 1000 ml Route: IV; Rate: 125 ml/hr; Site: right antecubital; bp 10:36 Follow up: IV Status: Completed infusion bp 07:00 Drug: NS 0.9% 1000 ml Route: IV; Rate: 1 bolus; Site: right antecubital; bp 10:33 Follow up: BP 139 / 83; Pulse 100 bpm; Resp 14 bpm; Pulse Ox 97% bp 10:36 Follow up: IV Status: Completed infusion; IV Intake: 1000ml bp 09:00 Drug: Zofran 4 mg Route: IVP; Site: right antecubital; bp 10:13 Follow up: Response: Nausea is decreased bp Disposition: 09/19/18 10:20 Discharged to Home. Impression: Abdominal tenderness, Vomiting, Diarrhea, unspecified, Anemia, unspecified. - Condition is Stable. - Discharge Instructions: Abdominal Pain, Adult, Food Choices to Help Relieve Diarrhea, Adult, Diarrhea, Adult, Nausea and Vomiting, Adult, Nausea and Vomiting, Adult, [id number], Abdominal Pain, Adult, [id number], Diarrhea, Adult, [id number]. - Prescriptions for Bentyl 20 mg Oral Tablet - take 1 tablet by ORAL route every 6 hours As needed; 20 tablet. Flagyl 500 mg Oral Tablet - take 1 tablet by ORAL route every 8 hours for 10 days; 21 tablet. Zofran 4 mg Oral Tablet - take 1 tablet by ORAL route every 12 hours As needed; 20 tablet. Cipro 500 mg Oral Tablet - take 1 tablet by ORAL route every 12 hours for 7 days; 14 tablet. - Medication Reconciliation Form, Thank You Letter, Antibiotic Education, Prescription Opioid Use, Work release form form. - Follow up: Burt Delaney; When: 2 - 3 days; Reason: Recheck today's complaints, Continuance of care, Re-evaluation by your physician. Follow up: Royce Gillespie; When: 2 - 3 days; Reason: Recheck today's complaints, Continuance of care, Re-evaluation by your physician. - Problem is new. - Symptoms have improved. Signatures: Dispatcher [employer] EDMS Deirdre Anthony RN RN aa1 Yonathan Pat MD MD cha Page, Corey, PA PA cp Ashley Velazquez, RN RN tl2 Fer Samaniego, RN RN bp Corrections: (The following items were deleted from the chart) 07:30 07:30 Normal except: CL 110; GLUC 111. cp cp 10:40 10:20 09/19/2018 10:20 Discharged to Home. Impression: Abdominal tenderness; Vomiting; bp Diarrhea, unspecified; Anemia, unspecified. Condition is Stable. Discharge Instructions: Abdominal Pain, Adult, Food Choices to Help Relieve Diarrhea, Adult, Diarrhea, Adult, Nausea and Vomiting, Adult, Nausea and Vomiting, Adult, [id number], Abdominal Pain, Adult, [id number], Diarrhea, Adult, [id number]. Prescriptions for Bentyl 20 mg Oral Tablet - take 1 tablet by ORAL route every 6 hours As needed; 20 tablet, Flagyl 500 mg Oral Tablet - take 1 tablet by ORAL route every 8 hours for 10 days; 21 tablet, Zofran 4 mg Oral Tablet - take 1 tablet by ORAL route every 12 hours As needed; 20 tablet, Cipro 500 mg Oral Tablet - take 1 tablet by ORAL route every 12 hours for 7 days; 14 tablet. and Forms are Medication Reconciliation Form, Thank You Letter, Antibiotic Education, Prescription Opioid Use. Follow up: Burt Delaney; When: 2 - 3 days; Reason: Recheck today's complaints, Continuance of care, Re-evaluation by your physician. Follow up: Royce Gillespie; When: 2 - 3 days; Reason: Recheck today's complaints, Continuance of care, Re-evaluation by your physician. Problem is new. Symptoms have improved. cp
--- NOTE | 2018-09-19 11:03 | RAD REPORT ---
EXAM DESCRIPTION: CT - Abdomen Pelvis W Contrast - 09/19/2018 7:01 am CLINICAL HISTORY: Abdominal pain with vomiting and diarrhea COMPARISON: 2016 TECHNIQUE: Computed axial tomography of the abdomen pelvis was obtained. 100 cc Isovue-300 was admin istered intravenously. Oral contrast was not requested which limits evaluation of bowel. All CT scans are performed using dose optimization technique as appropriate and may include automated exposure control or mA/KV adjustment according to patient size. FINDINGS: The liver, spleen, pancreas, adrenal and kidneys appear unremarkable. There is no evidence of diverticulitis. The appendix is normal. 2 centimeter right ovarian cyst with a small amount free fluid. Fluid is present throughout nondilated large and small bowel Small umbilical hernia IMPRESSION: 2 centimeter right ovarian cyst without significant free fluid Fluid within nondilated large and small bowel may indicate an enteritis The exam was discussed with Jaime Betancur in the emergency room
== END 2018-09-19 10:40 | disposition home or self-care (01) ==
LOC: ER 04:50
DX: R11.2 Nausea with vomiting, unspecified (principal); R19.7 Diarrhea, unspecified; D64.9 Anemia, unspecified; F90.9 Attention-deficit hyperactivity disorder, unspecified type
CPT/HCPCS: 36415; 74177; 80048; 80076; 83690; 85025; 87086; 87088; 96361; 96365; 96366; 96367; 96375; 99284; J0744; J2405; J7030; Q9967

== ENCOUNTER 2019-10-14 07:17 | Emergency (ER) | payer BC ==
[2019-10-14 08:31] LABS: Absolute Lymphocytes (CBC) 0.8 K/uL (0.7-4.9); Basophils % 0.1 % (0-1.3); Hematocrit 31.2 % (36.0-45.0); Lymphocytes % 8.6 % (15.3-44.8); RBC Red Blood Cell Count 4.85 M/uL (3.86-4.86)
[2019-10-14 08:48] LABS: ALT/SGPT 44 U/L (12-78); AST/SGOT 21 U/L (15-37); Albumin 3.5 g/dL (3.4-5.0); Alkaline Phosphatase 72 U/L (45-117); BUN Blood Urea Nitrogen 9 mg/dL (7-18); Bicarbonate 23 mmol/L (21-32); Bilirubin Direct 0.1 mg/dL (0-0.2); Bilirubin Total 0.4 mg/dL (0.2-1.0); Glucose Level 118 mg/dL (74-106); Lipase 128 U/L (73-393); Potassium 3.9 mmol/L (3.5-5.1); Protein, Total 8.4 g/dL (6.4-8.2); Sodium Level 136 mmol/L (136-145)
[2019-10-14 09:36] LABS: Anisocytosis 2+; Blood Morphology Comment NOTED (NOT SEEN); Hypochromasia 1+; Platelet Estimate ADEQ
--- NOTE | 2019-10-14 09:47 | RAD REPORT ---
EXAM DESCRIPTION: CT - Abdomen Pelvis W Contrast - 10/14/2019 9:23 am CLINICAL HISTORY: Abdominal pain/diarrhea COMPARISON: 2019 TECHNIQUE: Computed axial tomography of the abdomen pelvis was obtained. 100 cc Isovue-300 was admin istered intravenously. Oral contrast was not requested which limits evaluation of bowel. Approximatel y 20 cc of contrast infiltrated into the right arm. All CT scans are performed using dose optimization technique as appropriate and may include automated exposure control or mA/KV adjustment according to patient size. FINDINGS: The liver, spleen, pancreas, adrenal and kidneys appear unremarkable. There is no evidence of diverticulitis. Normal appendix A 2 centimeter left ovarian cyst with small amount of free fluid IMPRESSION: A 2 centimeter left ovarian cyst with small amount of free fluid
--- NOTE | 2019-10-14 09:56 | ER ---
Nurse's Notes [facility] Name: Zee Lima Age: 34 yrs Sex: Female : 1985 Arrival Date: 10/14/2019 Time: 07:21 Bed 6 Private MD: Burt Delaney Diagnosis: Diarrhea, unspecified;Unspecified ovarian cysts Presentation: 10/13 07:44 Chief complaint: Patient states: lower abd pain that began yesterday. Also c/o nausea, ss diarrhea. Hx of colitis. PT reports this feels similar to the episode she had in 2018. Coronavirus screen: Proceed with normal triage. Patient denies a cough. Patient denies shortness of breath or difficulty breathing. Patient denies measured and/or subjective temperature greater than 100.4F prior to today's visit. Patient denies travel on a cruise ship or to a country the [facility] currently lists as an affected area. Patient denies contact with known and/or suspected case of COVID-19. Ebola Screen: Patient denies exposure to infectious person. Patient denies travel to an Ebola-affected area in the 21 days before illness onset. Initial Sepsis Screen: Does the patient meet any 2 criteria? No. Patient's initial sepsis screen is negative. Does the patient have a suspected source of infection? No. Patient's initial sepsis screen is negative. Risk Assessment: Do you want to hurt yourself or someone else? Patient reports no desire to harm self or others. Onset of symptoms was October 13, 2019. 07:44 Method Of Arrival: Ambulatory 07:44 Acuity: PAUL 3 ss Historical: - Allergies: 07:48 No Known Allergies; ss - Home Meds: 07:48 Vyvanse 30 mg oral cap 1 cap once daily [Active]; ss - PMHx: 07:48 ADD/ADHD; ss - PSHx: 07:48 ; ss - Immunization history:: Adult Immunizations up to date. - Social history:: Smoking status: Patient denies any tobacco usage or history of. - Family history:: not pertinent. - Hospitalizations: : No recent hospitalization is reported. Screenin:44 Abuse screen: Denies threats or abuse. Nutritional screening: No deficits noted. em Tuberculosis screening: No symptoms or risk factors identified. Fall Risk None identified. Assessment: 08:00 General: Appears in no apparent distress. comfortable, Behavior is calm, cooperative, em appropriate for age, Denies fever. Pain: Complains of pain in right lower quadrant and left lower quadrant Pain at worst was 8 out of 10 on a pain scale. Neuro: Level of Consciousness is awake, alert, obeys commands, Oriented to person, place, time, situation, Appropriate for age. Cardiovascular: Capillary refill < 3 seconds Patient's skin is warm and dry. Respiratory: Airway is patent Respiratory effort is even, unlabored, Respiratory pattern is regular, symmetrical. GI: Abdomen is flat, Bowel sounds present X 4 quads. Abd is soft X 4 quads Abdomen is tender to palpation in right lower quadrant and left lower quadrant Reports nausea. Derm: Skin is intact, is healthy with good turgor, Skin is pink, warm \T\ dry. Musculoskeletal: Capillary refill < 3 seconds, Range of motion: intact in all extremities. 10:07 Reassessment: Patient appears in no apparent distress at this time. Patient and/or sv family updated on plan of care and expected duration. Pain level reassessed. Patient is alert, oriented x 3, equal unlabored respirations, skin warm/dry/pink. Vital Signs: 07:44 BP 131 / 91; Pulse 72; Resp 14; Temp 98.0(TE); Pulse Ox 100% on R/A; Weight 61.23 kg; ss Height 5 ft. 2 in. (157.48 cm); Pain 8/10; 09:38 BP 115 / 59; Pulse 60; Resp 15; Temp 97.3(TE); Pulse Ox 99% on R/A; mh5 07:44 Body Mass Index 24.69 (61.23 kg, 157.48 cm) ED Course: 07:21 Patient arrived in ED. am2 07:22 Butr Delaney MD is Private Physician. am2 07:28 Arjun Roe MD is Attending Physician. rn 07:48 Triage completed. ss 07:48 Arm band placed on right wrist. ss 08:08 Cipriano Bowles, SERGO is Primary Nurse. em 08:26 Initial lab(s) drawn, by me, sent to lab. Inserted saline lock: 22 gauge in right mh5 antecubital area, using aseptic technique. Blood collected. 08:27 Patient has correct armband on for positive identification. Placed in gown. Bed in low mh5 position. Call light in reach. Warm blanket given. Pulse ox on. NIBP on. 08:28 Lipase Sent. 5 08:28 Hepatic Function Sent. 08: CBC with Diff Sent. 08: Basic Metabolic Panel Sent. 08: Creatinine for Radiology Sent. 08:29 Urine --Ancillary (enter results) Sent. : Urine Dipstick--Ancillary (enter results) Sent. 08:31 Urine collected: clean catch specimen, clear. 10 18:23 CT completed. pt iv infiltrated with 20 cc of contrast warm compress applied new iv [id number] started in right ac. 09:24 CT Abd/Pelvis - IV Contrast Only In Process Unspecified. EDMS 10:07 No provider procedures requiring assistance completed. IV discontinued, intact, sv bleeding controlled, No redness/swelling at site. Pressure dressing applied. Administered Medications: No medications were administered Outcome: :56 Discharge ordered by . rn 10:07 Discharged to home ambulatory. sv 10:07 Condition: stable 10:07 Discharge instructions given to patient, Instructed on discharge instructions, follow up and referral plans. medication usage, Demonstrated understanding of instructions, follow-up care, medications, Prescriptions given X 3. 10:08 Patient left the ED. sv Signatures: Dispatcher [employer] Dinah Mcdaniel, Cipriano Romano RN, RN RN em Nieto, Roman, MD MD rn Smirch, Shelby, RN RN ss Martinez, Maria [facility] Meghan Branch Jessica j6
--- NOTE | 2019-10-14 09:57 | EDPHYS ---
Physician Documentation [facility] Name: Zee Lima Age: 34 yrs Sex: Female : 1985 Arrival Date: 10/14/2019 Time: 07:21 Bed 6 Private MD: Burt Delaney ED Physician Arjun Roe HPI: 10/13 08:12 This 34 yrs old Female presents to ER via Ambulatory with complaints of rn Abdominal Pain, nausea, diarrhea. 08:12 The patient presents to the emergency department with nausea, diarrhea, abdominal pain. rn Onset: The symptoms/episode began/occurred yesterday. Possible causes: unknown. The symptoms are aggravated by nothing. The symptoms are alleviated by nothing. Associated signs and symptoms: Pertinent positives: abdominal pain, diarrhea, Pertinent negatives: fever, GI bleeding, vaginal discharge. Severity of symptoms: At their worst the symptoms were mild in the emergency department the symptoms are unchanged. The patient has experienced a previous episode. Reports mid abd pain, diarrhea, non-bloody, + nausea, began yesterday, similar to last time had colitis. Had scope after that episode in 2018, no crohn's or ulcerative colitis.. Historical: - Allergies: 07:48 No Known Allergies; ss - Home Meds: 07:48 Vyvanse 30 mg oral cap 1 cap once daily [Active]; ss - PMHx: 07:48 ADD/ADHD; ss - PSHx: 07:48 ; ss - Immunization history:: Adult Immunizations up to date. - Social history:: Smoking status: Patient denies any tobacco usage or history of. - Family history:: not pertinent. - Hospitalizations: : No recent hospitalization is reported. ROS: 08:12 Constitutional: Negative for fever, chills, and weight loss, Eyes: Negative for injury, rn pain, redness, and discharge, Neck: Negative for injury, pain, and swelling, Cardiovascular: Negative for chest pain, palpitations, and edema, Respiratory: Negative for shortness of breath, cough, wheezing, and pleuritic chest pain, Abdomen/GI: + abd pain and nausea/diarrhea : Negative for injury, bleeding, discharge, and swelling, MS/Extremity: Negative for injury and deformity, Skin: Negative for injury, rash, and discoloration, Neuro: Negative for headache, weakness, numbness, tingling, and seizure. Exam: 08:12 Constitutional: This is a well developed, well nourished patient who is awake, alert, rn and in no acute distress. Ambulatory to room without difficulty or assistance. Head/Face: Normocephalic, atraumatic. Cardiovascular: Regular rate and rhythm. No pulse deficits. Respiratory: No increased work of breathing, no retractions or nasal flaring. Abdomen/GI: soft, + mid abd tenderness, no rebound or masses Skin: Warm, dry MS/ Extremity: Pulses equal, no cyanosis. Neuro: Awake and alert, GCS 15. Normal gait. Vital Signs: 07:44 BP 131 / 91; Pulse 72; Resp 14; Temp 98.0(TE); Pulse Ox 100% on R/A; Weight 61.23 kg; ss Height 5 ft. 2 in. (157.48 cm); Pain 8/10; 09:38 BP 115 / 59; Pulse 60; Resp 15; Temp 97.3(TE); Pulse Ox 99% on R/A; mh5 07:44 Body Mass Index 24.69 (61.23 kg, 157.48 cm) ss MDM: 08:01 Patient medically screened. rn 09:54 Differential diagnosis: Nonspecific abd pain, appendicitis, diverticulitis, viral rn gastroenteritis, gastroenteritis, ovarian cyst. Data reviewed: vital signs, nurses notes, lab test result(s), radiologic studies, CT scan, and as a result, I will discharge patient. Counseling: I had a detailed discussion with the patient and/or guardian regarding: the historical points, exam findings, and any diagnostic results supporting the discharge/admit diagnosis, lab results, radiology results, the need for outpatient follow up, to return to the emergency department if symptoms worsen or persist or if there are any questions or concerns that arise at home. Response to treatment: the patient's symptoms have mildly improved after treatment, and as a result, I will discharge patient. Special discussion: I discussed with the patient/guardian in detail that at this point there is no indication for admission to the hospital. It is understood, however, that if the symptoms persist or worsen the patient needs to return immediately for re-evaluation. ED course: Unclear etiology, CT shows ovarian cyst with small free fluid, no obvious gut infection, will dc home with abx given abd pain/diarrhea/nausea and hx of colitis, and return precautions. . 10/13 08:03 Order name: Urine Dipstick--Ancillary (enter results) bd 10/13 08:03 Order name: Urine --Ancillary (enter results) bd 10/13 08:11 Order name: Creatinine for Radiology; Complete Time: 09:27 rn 10/13 08:11 Order name: Basic Metabolic Panel; Complete Time: 09:27 rn 10/13 08:11 Order name: CBC with Diff; Complete Time: 09:51 rn 10/13 08:11 Order name: Hepatic Function; Complete Time: 09: rn 10/13 08:11 Order name: Lipase; Complete Time: 09: rn 10/13 08:11 Order name: IV Saline Lock; Complete Time: 08: rn 10/13 08:11 Order name: Labs collected and sent; Complete Time: 08: rn 10/13 08:11 Order name: CT Abd/Pelvis - IV Contrast Only; Complete Time: 09:51 rn 10/13 09:37 Order name: Manual Differential; Complete Time: 09:51 EDMS Administered Medications: No medications were administered Disposition: 10/14/19 09:56 Discharged to Home. Impression: Diarrhea, unspecified, Unspecified ovarian cysts. - Condition is Stable. - Discharge Instructions: Diarrhea, Adult, Ovarian Cyst. - Prescriptions for Zofran ODT 4 mg Oral tablet,disintegrating - place 1 tablet by TRANSLINGUAL route every 8 hours As needed; 20 tablet. Cipro 500 mg Oral Tablet - take 1 tablet by ORAL route every 12 hours for 10 days; 20 tablet. Flagyl 500 mg Oral Tablet - take 1 tablet by ORAL route every 8 hours for 10 days; 30 tablet. - Medication Reconciliation Form, Thank You Letter, Antibiotic Education, Prescription Opioid Use form. - Follow up: Private Physician; When: As needed; Reason: Recheck today's complaints, Re-evaluation by your physician. - Problem is new. - Symptoms have improved. Signatures: Dispatcher [employer] EDFL Dinah Kelsey RN RN sv Nieto, Roman, MD MD rn Smirch, Shelby, RN RN ss Corrections: (The following items were deleted from the chart) 10:08 09:56 10/14/2019 09:56 Discharged to Home. Impression: Diarrhea, unspecified; sv Unspecified ovarian cysts. Condition is Stable. Forms are Medication Reconciliation Form, Thank You Letter, Antibiotic Education, Prescription Opioid Use. Follow up: Private Physician; When: As needed; Reason: Recheck today's complaints, Re-evaluation by your physician. Problem is new. Symptoms have improved. rn
[2019-10-14 10:42] LABS: Urine Blood NEGATIVE (NEG); Urine Glucose NEGATIVE (NEG); Urine Protein NEGATIVE (NEG); Urine Specific Gravity >1.030 (1.005-1.030)
[2019-10-14 11:55] VITALS: BP 115/59; TEMP 97.3; O2SAT 99
== END 2019-10-14 10:08 | disposition home or self-care (01) ==
LOC: ER 07:17
DX: R19.7 Diarrhea, unspecified (principal); N83.209 Unspecified ovarian cyst, unspecified side; F90.9 Attention-deficit hyperactivity disorder, unspecified type
CPT/HCPCS: 85025; 80048; 36415; 81025; 80076; 81003; 83690; 74177; Q9967; 99284